=== PATIENT | male | born 1980 | race Asian ===

== ENCOUNTER 2021-09-04 21:35 | Emergency (ER) | payer SELFPAY ==
[~2021-09-04] VITALS: Ht 172.7 cm; Wt 63.5 kg
[2021-09-05] MEDS ORDERED: NAPR-1192 PO (00:09)
[2021-09-05 00:14] VITALS: BP 132/80
--- NOTE | 2021-09-05 00:14 | NUR ---
Patient discharged to home in stable condition. Written and verbal after care instructions given. Patient verbalizes understanding of instruction. RX GIVEN
== END 2021-09-05 00:15 | disposition home or self-care (01) ==
LOC: ER 21:38
DX: M79.674 Pain in right toe(s) (principal); B35.1 Tinea unguium; Z98.890 Other specified postprocedural states; Z60.2 Problems related to living alone